=== PATIENT | male | born 1985 | race Caucasian/White ===

== ENCOUNTER 2018-05-07 16:01 | Emergency (ER) | payer OTHER ==
[~2018-05-07] VITALS: Ht 180.3 cm; Wt 68.0 kg
[~2018-05-07 16:01] MED LIST: ACETAMINOPHEN-1 EAC1 PO; CITRATE OF MAG296 ML PO; CLEOCIN HCL150 MG PO; DULCOLAX5 MG PO; IBUPROFEN 600600 M1 PO; IBUPROFEN 800800 M1 PO; KEFLEX500 MG PO; NAPROSYN500 MG PO; NEXIUM40 MG PO; NORCO 5-325 TA1 EACH PO; ONDANSETRON HCL4 M2 PO; PERCOCET 7.5-31 EACH PO; ROBAXIN 750 MG750 M1 PO; ROBAXIN500 MG PO; ZOFRAN 4 MG ORAL4 M1 DIS
[2018-05-07] MEDS ORDERED: TRAMADOL 50 MG50 MG PO (17:00)
[2018-05-07] MEDS ORDERED: KEFLEX500 M1 PO (17:00)
[2018-05-07 17:21] VITALS: BP 125/80
== END 2018-05-07 17:22 | disposition home or self-care (01) ==
LOC: M.ERS 16:01
DX: S91.202A Unspecified open wound of left great toe with damage to nail, initial encounter (principal); W22.01XA Walked into wall, initial encounter; Y93.89 Activity, other specified; Y92.89 Other specified places as the place of occurrence of the external cause; Y99.8 Other external cause status; Z85.828 Personal history of other malignant neoplasm of skin; F17.200 Nicotine dependence, unspecified, uncomplicated; Z88.0 Allergy status to penicillin